=== PATIENT | female | born 1990 | race Caucasian/White ===

== ENCOUNTER 2017-03-18 07:16 | Inpatient (IN) | payer MEDICAID ==
[~2017-03-18] VITALS: Ht 165.1 cm; Wt 67.6 kg
[2017-03-18] MEDS ORDERED: LACTATED RINGERS 1,000 ML IV SCH (07:22)
[2017-03-18] MEDS ORDERED: DEXT 5%/LR + PITOCIN 20UNITS/L 1,000 ML IV SCH ×3 (07:22→12:21)
[2017-03-18] MEDS ORDERED: METHYLERGONOVINE MALEATE 0.2 MG/ML IM PRN ×2 (07:30→12:30)
[2017-03-18] MEDS ORDERED: LIDOCAINE HCL 1% 20ML VIAL (Pyxis) INJ INFIL SCH (07:30)
[2017-03-18] MEDS ORDERED: CARBOPROST TROMETHAMINE 250 MCG/ML AMPUL IM PRN (07:30)
[2017-03-18] MEDS ORDERED: BUTORPHANOL TARTRATE 2 MG/ML VIAL IV PRN (07:30)
[2017-03-18] MEDS ORDERED: MISOPROSTOL 100MCG TABLET VG SCH (07:30)
[2017-03-18 07:44] LABS: BASOPHILS % 0.2 % (0.0-2.0); EOSINOPHILS % 0.6 % (0.0-5.0); HEMATOCRIT. 36.1 % (36.0-48.0); HEMOGLOBIN. 12.4 g/dL (12.0-16.0); LYMPHOCYTES % 18.7 % (20.0-50.0); MEAN CORPUSCULAR HEMOGLOBIN 31.6 pg (28.0-32.0); MONOCYTES % 6.7 % (2.0-8.0); NEUTROPHILS % 73.8 % (40.0-76.0); PLATELET 310 x1000/uL (130-400); RED BLOOD CELL COUNT 3.92 mill/uL (4.2-5.4); RED CELL DISTRIBUTION WIDTH 13.8 % (11.6-14.6)
[2017-03-18 08:08] LABS: INR 0.9; PARTIAL THROMBOPLASTIN TIME 26.3 sec (23.4-31.0); PROTHROMBIN TIME 9.8 sec (9.4-11.6)
[2017-03-18 09:15] VITALS: BP 90/50
[2017-03-18 09:45] VITALS: BP 91/51
[2017-03-18 10:36] LABS: RUBELLA IGG 34.6 IU/mL (4.99-10)
[2017-03-18 10:37] LABS: HEPATITIS B SURFACE ANTIGEN NEGATIVE
[2017-03-18] MEDS ORDERED: IBUPROFEN 400MG TABLET PO PRN (12:30)
[2017-03-18] MEDS ORDERED: BENZOCAINE/LANOLIN/ALOE VERA SPRAY TOP PRN (12:30)
[2017-03-18] MEDS ORDERED: ACETAMINOPHEN 500MG TABLET PO PRN (12:30)
[2017-03-18] MEDS ORDERED: IBUPROFEN 800MG TABLET PO PRN (12:30)
[2017-03-18 15:26] VITALS: BP 91/50
[2017-03-18 20:00] VITALS: BP 90/53
[2017-03-19 06:39] LABS: BASOPHILS % 0.4 % (0.0-2.0); EOSINOPHILS % 2.1 % (0.0-5.0); HEMATOCRIT. 31.8 % (36.0-48.0); HEMOGLOBIN. 10.6 g/dL (12.0-16.0); LYMPHOCYTES % 26.8 % (20.0-50.0); MEAN CORPUSCULAR HEMOGLOBIN 31.2 pg (28.0-32.0); MEAN CORPUSCULAR VOLUME 93.7 fL (81.0-99.0); MONOCYTES % 7.7 % (2.0-8.0); PLATELET 274 x1000/uL (130-400); RED BLOOD CELL COUNT 3.39 mill/uL (4.2-5.4); RED CELL DISTRIBUTION WIDTH 13.8 % (11.6-14.6)
[2017-03-19 07:42] VITALS: BP 90/51
[2017-03-19] MEDS ORDERED: PRENATAL VIT/FE FUMARATE/FA TABLET PO SCH (09:00)
== END 2017-03-19 12:10 | disposition home or self-care (01) | DRG 560 ==
LOC: OBSVTOIN 07:16 → L&D 07:16 → 7EST PP/OB 09:29
PROVIDERS: ADMIT Specialist; ATTEND Specialist
PROC: 10E0XZZ Delivery of Products of Conception, External Approach (ICD-10-PCS; 2017-03-18)
PROC: 0KQM0ZZ Repair Perineum Muscle, Open Approach (ICD-10-PCS; principal; 2017-03-18 07:45)
DX: O70.1 Second degree perineal laceration during delivery (principal); O72.0 Third-stage hemorrhage; D64.9 Anemia, unspecified; Z3A.39 39 weeks gestation of pregnancy; Z37.0 Single live birth; O99.03 Anemia complicating the puerperium
CPT/HCPCS: 36415; 85025; 85610; 85730; 86592; 86703; 86762; 86850; 86900; 87340; 99281; C1893; G0378; J2590; J3490; J7120